=== PATIENT | male | born 1965 | race Caucasian/White ===

== ENCOUNTER 2017-08-30 19:08 | Emergency (ER) | payer SELFPAY ==
[~2017-08-30] VITALS: Ht 167.6 cm; Wt 97.0 kg
[~2017-08-30 19:08] MED LIST: LORT5TAB PO; PENI500T PO
[2017-08-30 19:15] VITALS: BP 178/102; PULSE 90; RESP 18; TEMP 97.4; O2SAT 96
[2017-08-30 19:22] VITALS: BP 178/102; PULSE 90; RESP 18; TEMP 97.4; O2SAT 96
[2017-08-30] MEDS ORDERED: AMOX500C PO (19:43)
[2017-08-30] MEDS ORDERED: MAGICPED SWISH-SWAL (19:43)
[2017-08-30] MEDS ORDERED: IBUP1TAB7 PO (19:43)
[2017-08-30] MEDS ORDERED: PERI0.126 SWISH-SPIT (19:43)
--- NOTE | 2017-08-30 19:44 | PD ---
HPI Chief Complaint: Oral / Dental Pain or Problem Time Seen by Provider: 19:41 Travel History International Travel<30 days: No Contact w/Intl Traveler<30days: No Traveled to known affect area: No History of Present Illness HPI 52-year-old female presents to the emergency Department with complaint of generalized teeth and gum pain times one week. Worse on the right upper. Denies fever, vomiting. Denies sore throat, difficult to swallow, unusual drooling. Pain radiates to the right ear. Has been taking Tylenol for symptom management. No primary care provider. No dentist. Denies allergies. History of hypertension and does not take medications. Denies chest pain, shortness breath, headache, blurred vision. Rates pain 7/10. Described as a throbbing sensation. No known aggravating factors. Has no other medical complaints. No other modifying factors or associated signs and symptoms PFSH Past Medical History Hypertension: Yes (NON-COMPLIANT WITH MEDICATION) Tetanus Vaccination: > 5 Years Influenza Vaccination: No Social History Alcohol Use: No Tobacco Use: No Substance Use: No Allergies-Medications (Allergen,Severity, Reaction): Coded Allergies: No Known Allergies (Verified Adverse Reaction, Unknown, 08/30/17) Reported Meds & Prescriptions Reported Meds & Active Scripts Active Magic Mouthwash Pediatric/Adult Liq (Lidocaine/Diphenhydr/Alum/Mg/Simeth) 60 Ml Susp 5 Ml SWISH-SWAL Q3HR PRN Each 5mL contains: Diphenydramine 4.5mg, Viscous Lidocaine 2% 10mg, Maalox Advanced Regular Strength 2.7ml Peridex Liq (Chlorhexidine Gluconate (Mouth) Liq) 0.12% Soln 15 Ml SWISH-SPIT BID 10 Days Ibuprofen 800 Mg Tab 800 Mg PO Q6HR PRN Amoxicillin 500 Mg Cap 500 Mg PO BID 10 Days Review of Systems Except as stated in HPI: all other systems reviewed are Neg Physical Exam Narrative GENERAL: Well-nourished, well-developed male patient, in no acute distress; afebrile, nontoxic-appearing SKIN: Warm and dry. HEAD: Atraumatic. Normocephalic. No facial edema, erythema, tenderness on palpation. No lymphadenopathy. EYES: Pupils equal and round. No scleral icterus. No injection or drainage. ENT: Mucosa pink and moist. No erythema or exudates. No uvular edema. No uvular , palatal, or tonsillar deviation. Airway patent. EARS: Bilateral pinnae and external canals appear within normal limits. Bilateral tympanic membranes without erythema, dullness or perforation. MOUTH: Mucous membranes moist, no lesions, tongue and gums appear normal. Poor dentition throughout. Partially edentulous. Right upper molar, cannot specify which one it is, with tenderness on palpation. Multiple dental cavities noted. Surrounding gingiva is without erythema, edema, drainage. All gingiva in the mouth appears without erythema, edema, drainage. No obvious abscess noted. NECK: Trachea midline. No lymphadenopathy. CARDIOVASCULAR: Regular rate. RESPIRATORY: No accessory muscle use. GASTROINTESTINAL: Rounded. MUSCULOSKELETAL: No obvious deformities. No clubbing. No cyanosis. No edema. NEUROLOGICAL: Awake and alert. Oriented 3. No obvious cranial nerve deficits. Motor grossly within normal limits. Normal speech. PSYCHIATRIC: Appropriate mood and affect; insight and judgment normal. Data Data Last Documented VS Vital Signs Date Time Temp Pulse Resp B/P (MAP) Pulse Ox O2 Delivery O2 Flow Rate FiO2 08/30/17 19:22 97.4 90 18 178/102 (127) 96 Orders Orders Ed Discharge Order (08/30/17 19:50) MDM Medical Decision Making Medical Screen Exam Complete: Yes Emergency Medical Condition: Yes Medical Record Reviewed: Yes Differential Diagnosis Gingivitis, infected dental caries, dental abscess Narrative Course 52-year-old male with generalized dental pain throughout. Partially edentulous. Multiple dental cavities noted. Particularly the right upper molar has the most pain. There is tenderness on palpation. No obvious abscesses. No facial edema, erythema. No fever or vomiting. Denies fever, vomiting. Patient provided emergency dental information sheet for follow-up. Amoxicillin, Peridex mouth rinse, ibuprofen, Magic mouthwash prescribed for home. Instructed patient to follow up with primary care provider. Patient verbalizes understanding and agreement with treatment plan. Patient is medically cleared and stable for discharge. Discussed reasons to return to the emergency department. Patient agrees with treatment plan. The patients vital signs are stable and the patient is stable for outpatient follow-up and treatment. Patient discharged home, stable and in no acute distress. Diagnosis Primary Impression: Pain, dental Referrals: Dentist Primary Care Physician Patient Instructions: Dental Caries (ED), General Instructions, Gingivitis (ED) , Toothache (ED) Additional Instructions: Complete full course of antibiotics Ibuprofen or Tylenol as directed and as needed to reduce pain and inflammation Use Magic mouthwash rinse as directed and as needed to decrease pain Use Peridex as directed for oral hygiene Warm or cool compresses to the affected area Follow-up with dentist Follow-up with primary care provider Return to emergency department immediately with worsening of symptoms Med/Other Pt SpecificInfo: Prescription(s) given Scripts Eoyfizohikdwuwe-Podlhhzex-Ovo-Alum-Simeth Liq (Magic Mouthwash Pediatric/Adult Liq) 60 Ml Susp 5 ML SWISH-SWAL Q3HR Y for PAIN SCALE 1 TO 10, #60 ML 0 Refills Each 5mL contains: Diphenydramine 4.5mg, Viscous Lidocaine 2% 10mg, Maalox Advanced Regular Strength 2.7ml Prov: Cindy Fuentes 08/30/17 Chlorhexidine Gluconate (Mouth) Liq (Peridex Liq) 0.12% Soln 15 ML SWISH-SPIT BID for 10 Days, #300 ML 0 Refills Prov: Cidny Fuentes 08/30/17 Ibuprofen (Ibuprofen) 800 Mg Tab 800 MG PO Q6HR Y for PAIN, #30 TAB 0 Refills Prov: Cindy Fuentes 08/30/17 Amoxicillin (Amoxicillin) 500 Mg Cap 500 MG PO BID for Infection for 10 Days, #20 CAP 0 Refills Prov: Cindy Fuentes 08/30/17 Disposition: 01 DISCHARGE HOME Condition: Stable Cindy Fuentes Aug 30, 2017 19:44
== END 2017-08-30 19:55 | disposition home or self-care (01) ==
LOC: PHEFT 19:08
DX: K08.89 Other specified disorders of teeth and supporting structures (principal); K02.9 Dental caries, unspecified
CPT/HCPCS: 99283